=== PATIENT | female | born 1945 | race Caucasian/White ===

== ENCOUNTER 2024-04-16 14:05 | Emergency (ER) | payer MEDICARE ==
[~2024-04-16] VITALS: Ht 165.1 cm; Wt 79.4 kg
[2024-04-16] MEDS ORDERED: DOCUSATE SODIUM 100 MG/10 ML LIQUID UDC ONE (15:24)
[2024-04-16] MEDS: DOCUSATE SODIUM 100 MG/10 ML LIQUID UDC XX ONE (15:25)
[2024-04-16 16:45] VITALS: BP 153/78; TEMP 98.8; O2SAT 96
== END 2024-04-16 16:46 | disposition home or self-care (01) ==
LOC: ER 14:05
DX: H61.21 Impacted cerumen, right ear (principal); I10 Essential (primary) hypertension; M10.9 Gout, unspecified; Z88.0 Allergy status to penicillin
CPT/HCPCS: A4606; A4663